=== PATIENT | female | born 1955 | race Hispanic/Latino ===

== ENCOUNTER 2021-08-27 16:27 | Outpatient (CLI) | payer BC ==
[2021-08-28 11:05] LABS: SARS-CoV-2 PCR by NAA Not Detected (NotDetected)
== END 2021-08-27 16:28 | disposition home or self-care (01) ==
LOC: CSHLAB 16:27
PROVIDERS: ATTEND Internal Medicine Gastroenterology
DX: Z20.822 Contact with and (suspected) exposure to COVID-19 (principal); R10.9 Unspecified abdominal pain; Z12.11 Encounter for screening for malignant neoplasm of colon; Z80.0 Family history of malignant neoplasm of digestive organs
CPT/HCPCS: U0003; U0005

== ENCOUNTER 2021-08-30 07:12 | Day surgery (SDC) | payer BC ==
[2021-08-29 10:21] VITALS: BMI 26.4
[2021-08-30] MEDS ORDERED: Lidocaine 1% MPF 2 ML VIAL ONE (08:04)
== END 2021-08-30 10:25 | disposition home or self-care (01) ==
LOC: CSHSDC 07:12
PROVIDERS: ATTEND Internal Medicine Gastroenterology
PROC: 0DJD8ZZ Inspection of Lower Intestinal Tract, Via Natural or Artificial Opening Endoscopic (ICD-10-PCS; principal; 2021-08-30)
PROC: 0DJ08ZZ Inspection of Upper Intestinal Tract, Via Natural or Artificial Opening Endoscopic (ICD-10-PCS; principal; 2021-08-30)
DX: R10.9 Unspecified abdominal pain (principal); K57.30 Diverticulosis of large intestine without perforation or abscess without bleeding; K64.9 Unspecified hemorrhoids; Z86.010 Personal history of colon polyps; Z80.0 Family history of malignant neoplasm of digestive organs; E03.9 Hypothyroidism, unspecified; F32.9 Major depressive disorder, single episode, unspecified; E78.5 Hyperlipidemia, unspecified; K58.9 Irritable bowel syndrome, unspecified; Z90.49 Acquired absence of other specified parts of digestive tract

== ENCOUNTER 2024-07-23 08:56 | Outpatient (CLI) | payer MEDICARE | END 2024-07-23 08:57 | disposition home or self-care (01) | LOC: CSHCT 08:56 | PROVIDERS: ATTEND Otolaryngology Plastic Surgery within the Head & Neck | DX: R09.81 Nasal congestion (principal); J32.3 Chronic sphenoidal sinusitis; J34.2 Deviated nasal septum ==

== ENCOUNTER 2024-08-30 10:55 | Outpatient (CLI) | payer MEDICARE ==
[2024-08-30 15:04] LABS: Hematocrit 36.6 % (34.9-44.5); Hemoglobin 12.2 g/dL (12.0-15.5)
[2024-08-30 15:25] LABS: Anion Gap 14 mmol/L (10-20); BUN (Urea Nitrogen) 24 mg/dL (9.8-20.1); Calc. Creatinine Clearance 0 mL/min (70-130); Calcium 9.6 mg/dL (7.8-10.44); Carbon Dioxide 23 mmol/L (23-31); Chloride 106 mmol/L (98-107); Estimated GFR 72; Glucose 93 mg/dL (80-115); Potassium 4.4 mmol/L (3.5-5.1); Sodium 139 mmol/L (136-145)
== END 2024-08-30 10:56 | disposition home or self-care (01) ==
LOC: CSHLAB 10:55
PROVIDERS: ATTEND Otolaryngology Plastic Surgery within the Head & Neck
DX: Z01.818 Encounter for other preprocedural examination (principal); J34.3 Hypertrophy of nasal turbinates; J32.4 Chronic pansinusitis
CPT/HCPCS: 80048; 85014; 85018; 93005; 93010

== ENCOUNTER 2024-09-01 11:06 | Day surgery (SDC) | payer MEDICARE ==
[2024-08-30 12:00] VITALS: BMI 28.3
[2024-09-01] MEDS ORDERED: Lidocaine 1% PF 5 ML VIAL ONE (13:26)
[2024-09-01] MEDS ORDERED: PROPOFOL 20 ML ONE (13:27)
[2024-09-01] MEDS ORDERED: AFRIN NASAL MIST 15 ML BOT ONE ×4 (13:34→17:33)
[2024-09-01] MEDS ORDERED: Lidocaine 1% w/Epinephrine 1:200K 30 ML VIAL ONE (13:59)
[2024-09-01] MEDS ORDERED: Lidocaine 2% PF 5 ML VIAL ONE (14:01)
[2024-09-01] MEDS ORDERED: Famotidine/PF 20 mg/2ml Vial ONE (14:04)
[2024-09-01] MEDS ORDERED: fentaNYL 50 mcg/mL 1 mL Vial ONE ×3 (14:11→15:28)
[2024-09-01] MEDS ORDERED: ePHEDrine Sulfate 50 MG/10 ML VIAL ONE (14:33)
[2024-09-01] MEDS ORDERED: Ondansetron PF 4 MG/2 ML Vial ONE (14:34)
[2024-09-01] MEDS ORDERED: Dexamethasone 4 mg/ml Vial ONE (14:34)
[2024-09-01] MEDS ORDERED: SUGAMMADEX SODIUM 200 MG/2 ML VIAL ONE (14:43)
[2024-09-01] MEDS ORDERED: HYDROcodone/Acetaminophen 5/325 mg Tablet ONE ×2 (16:21→17:14)
== END 2024-09-01 17:45 | disposition home or self-care (01) ==
LOC: CSHSDC 11:06
PROVIDERS: ATTEND Otolaryngology Plastic Surgery within the Head & Neck
PROC: 099R8ZZ Drainage of Left Maxillary Sinus, Via Natural or Artificial Opening Endoscopic (ICD-10-PCS; principal; 2024-09-01)
PROC: 099Q8ZZ Drainage of Right Maxillary Sinus, Via Natural or Artificial Opening Endoscopic (ICD-10-PCS; 2024-09-01)
PROC: 09TL8ZZ Resection of Nasal Turbinate, Via Natural or Artificial Opening Endoscopic (ICD-10-PCS; 2024-09-01)
PROC: 09TV8ZZ Resection of Left Ethmoid Sinus, Via Natural or Artificial Opening Endoscopic (ICD-10-PCS; 2024-09-01)
PROC: 09TU8ZZ Resection of Right Ethmoid Sinus, Via Natural or Artificial Opening Endoscopic (ICD-10-PCS; 2024-09-01)
PROC: 099X8ZZ Drainage of Left Sphenoid Sinus, Via Natural or Artificial Opening Endoscopic (ICD-10-PCS; 2024-09-01)
DX: J32.4 Chronic pansinusitis (principal); J34.3 Hypertrophy of nasal turbinates; J30.89 Other allergic rhinitis; E78.5 Hyperlipidemia, unspecified; E03.9 Hypothyroidism, unspecified; F41.9 Anxiety disorder, unspecified; F32.A Depression, unspecified; G62.9 Polyneuropathy, unspecified; K58.9 Irritable bowel syndrome, unspecified; Z90.710 Acquired absence of both cervix and uterus; Z79.890 Hormone replacement therapy; Z79.2 Long term (current) use of antibiotics; Z79.899 Other long term (current) drug therapy
CPT/HCPCS: 30140; 31255; 31256; 31259; 61782; J1100; J2405; J2704; J3010; J3490